=== PATIENT | male | born 1945 | race Two or more races ===

== ENCOUNTER 2018-05-09 13:12 | Emergency (ER) | payer MEDICARE, MEDICAID ==
[~2018-05-09] VITALS: Ht 165.1 cm; Wt 83.7 kg
[~2018-05-09 13:12] MED LIST: IBUP-1623
[2018-05-09 13:18] VITALS: BP 136/78
[2018-05-09 14:23] LABS: BASOPHILS # (AUTO) 0.08 x10^3/uL (0-0.1); BASOPHILS % (AUTO) 1 % (0-1); EOSINOPHILS # (AUTO) 0.22 x10^3/uL (0-0.4); EOSINOPHILS % (AUTO) 2 % (1-7); LYMPHOCYTES # (AUTO) 2.65 x10^3/uL (1-3.4); LYMPHOCYTES % (AUTO) 28 % (22-44); MD NO; MEAN CORPUSCULAR HEMOGLOBIN 33.1 pg (27.5-34.5); MEAN CORPUSCULAR HGB CONC 34.4 g/dL (33.2-36.2); MEAN CORPUSCULAR VOLUME 96.4 fL (81-97); MEAN PLATELET VOLUME 7.8 fL (7.4-10.4); MONOCYTES # (AUTO) 0.66 x10^3/uL (0.2-0.8); MONOCYTES % (AUTO) 7 % (2-9); NEUTROPHILS # (AUTO) 6.04 x10^3/uL (1.8-6.8); NEUTROPHILS % (AUTO) 63 % (42-75); PLATELET COUNT 264 x10^3/uL (130-400); RED BLOOD COUNT 5.02 x10^6/uL (4.38-5.82); RED CELL DISTRIBUTION WIDTH 13.7 % (9.4-14.8)
[2018-05-09 14:30] LABS: ALBUMIN 3.7 g/dL (3.4-5.0); ANION GAP 6 mmol/L (5-15); CALCIUM 9.1 mg/dL (8.5-10.1); CHLORIDE 109 mmol/L (98-107); CREATININE 0.94 mg/dL (0.7-1.3)
== END 2018-05-09 16:07 | disposition home or self-care (01) ==
LOC: ED 15:57
DX: M25.462 Effusion, left knee (principal); I10 Essential (primary) hypertension
CPT/HCPCS: 29505; 36415; 80048; 82040; 84550; 85025

== ENCOUNTER 2018-06-18 07:38 | Emergency (ER) | payer MEDICARE, MEDICAID ==
[~2018-06-18] VITALS: Ht 165.1 cm; Wt 83.3 kg
--- NOTE | 2018-06-18 08:03 | NUR ---
Pt stated that he has pain in his left big toe that is not relieved by Tylenol or Ibuprofen. Pt is alert, oriented, with NAD. FRIAS at bedside.
[2018-06-18 08:42] LABS: BASOPHILS # (AUTO) 0.05 x10^3/uL (0-0.1); BASOPHILS % (AUTO) 1 % (0-1); EOSINOPHILS # (AUTO) 0.19 x10^3/uL (0-0.4); EOSINOPHILS % (AUTO) 3 % (1-7); LYMPHOCYTES % (AUTO) 35 % (22-44); MD NO; MEAN CORPUSCULAR HEMOGLOBIN 32.5 pg (27.5-34.5); MEAN CORPUSCULAR HGB CONC 33.5 g/dL (33.2-36.2); MEAN CORPUSCULAR VOLUME 96.8 fL (81-97); MONOCYTES % (AUTO) 8 % (2-9); NEUTROPHILS # (AUTO) 3.15 x10^3/uL (1.8-6.8); NEUTROPHILS % (AUTO) 53 % (42-75); PLATELET COUNT 236 x10^3/uL (130-400); RED BLOOD COUNT 4.99 x10^6/uL (4.38-5.82); RED CELL DISTRIBUTION WIDTH 13.5 % (9.4-14.8)
--- NOTE | 2018-06-18 09:10 | NUR ---
Pt is resting in bed, respirations equal and non labored. NAD. Pt is connected to the monitor. Call light within reach.
[2018-06-18 09:25] VITALS: BP 134/74
--- NOTE | 2018-06-18 09:25 | NUR ---
Patient/Caregiver given discharge instructions and they have confirmed that they understand the instructions. Patient ambulatory with steady gait.
== END 2018-06-18 09:27 | disposition home or self-care (01) ==
LOC: ED 08:00
DX: M10.072 Idiopathic gout, left ankle and foot (principal); E78.00 Pure hypercholesterolemia, unspecified; I10 Essential (primary) hypertension
CPT/HCPCS: 36415; 84550; 85025; 99284

== ENCOUNTER 2019-09-17 08:21 | Emergency (ER) | payer MEDICARE, MEDICAID ==
[~2019-09-17] VITALS: Ht 162.6 cm; Wt 84.7 kg
[2019-09-17 08:23] VITALS: BP 142/82
== END 2019-09-17 08:56 ==
LOC: ED 08:40
DX: B35.0 Tinea barbae and tinea capitis (principal); I10 Essential (primary) hypertension; E78.00 Pure hypercholesterolemia, unspecified
CPT/HCPCS: 99282

== ENCOUNTER 2020-08-18 11:22 | Emergency (ER) | payer MEDICAID, MEDICARE ==
[~2020-08-18] VITALS: Ht 162.6 cm; Wt 83.6 kg
[2020-08-18 11:30] VITALS: BP 155/78
--- NOTE | 2020-08-18 11:51 | NUR ---
ERMD IN TO ASSESS PT. NAD NOTED AT THIS TIME. DAUGHTER AT BEDSIDE TO HELP WITH HX. AWAITING ORDER.
[2020-08-18] MEDS ORDERED: COLCHICINE 0.6 MG CAPSULE ONE (11:53)
[2020-08-18] MEDS ORDERED: COLCHICINE 0.6 MG CAPSULE PO ONE (12:00)
== END 2020-08-18 12:18 | disposition home or self-care (01) ==
LOC: ED 12:12
DX: M13.162 Monoarthritis, not elsewhere classified, left knee (principal); M10.061 Idiopathic gout, right knee; I10 Essential (primary) hypertension
CPT/HCPCS: 99283